=== PATIENT | female | born 1975 | race Caucasian/White ===

== ENCOUNTER 2016-12-06 15:40 | Emergency (ER) | payer MEDICAID ==
[2016-12-06 16:30] LABS: ABSOLUTE NEUTROPHIL COUNT 7.8 K/mm3 (1.8-7.7); BASO # 0.1 K/mm3 (0.0-0.2); BASO % 0.7 % (0.2-1.0); EOS # 0.6 (0.0-0.5); EOS % 4.9 % (0.9-2.9); HEMATOCRIT 42.6 % (37.0-47.0); HEMOGLOBIN 14.1 gm/l (12.0-16.0); IMM NEUT # 0.1 K/mm3 (0-0.2); IMM NEUT% 0.7 % (0-1); LYMPH # 2.7 (1.0-4.8); LYMPH % 21.8 % (15-45); MEAN CELL VOLUME 91.6 fl (81.0-99.0); MEAN CORPUSCULAR HEMOGLOBIN 30.3 pg (27.0-31.0); MEAN CORPUSCULAR HGB CONC 33.1 g/dl (33.0-37.0); MEAN PLATELET VOLUME 9.9 fl (7.4-10.4); MONO # 0.9 (0.0-0.8); MONO % 7.7 % (4-12); NEUT % 64.2 % (43-75); PLATELET COUNT 302 K/mm3 (130-400); RED CELL DISTRIBUTION WIDTH 12.4 % (11.5-14.5)
[2016-12-06 16:48] LABS: SPECIFIC GRAVITY 1.025 (1.001-1.030); URINE BILIRUBIN NEGATIVE (NEGATIVE); URINE BLOOD NEGATIVE (NEGATIVE); URINE GLUCOSE (UA) NEGATIVE (NEGATIVE); URINE LEUKOCYTE ESTERASE NEGATIVE (NEGATIVE); URINE NITRITE NEGATIVE (NEGATIVE); URINE PROTEIN NEGATIVE (NEGATIVE); URINE UROBILINOGEN NORMAL (0-1 mg/dl)
[2016-12-06 16:51] LABS: URINE APPEARANCE CLEAR; URINE COLOR DARK YELLOW
--- NOTE | 2016-12-06 17:52 | US ---
OB ULTRASOUND LESS THAN 14 WEEKS HISTORY: Left lower quadrant pain x1 week. History of right-sided salpingectomy. 9 weeks 1 day. Transabdominal and transvaginal obstetric ultrasound was performed. FINDINGS: INTRAUTERINE GESTATION: Present. MEAN SAC DIAMETER: 3.3 cm, corresponding to an age of 8 weeks 3 days. Gestational sac volume and morphology unremarkable. CROWN-RUMP LENGTH: 1.4 cm, corresponding to an age of 7 weeks 5 days. CARDIAC ACTIVITY: Present, with a heart rate of 164 beats per minute. Somatic motion is present. SONOGRAPHIC MEAN GESTATIONAL AGE: 7 weeks 5 days. SONOGRAPHIC EDC: 07/20/2017. YOLK SAC: Present. KIM-GESTATIONAL HEMORRHAGE: Not identified. RIGHT OVARY: 3.3 x 2.8 x 1.1 cm. LEFT OVARY: 3.8 x 2.8 x 2.0 cm. FOCAL ADNEXAL LESIONS: Probable corpus luteum cyst on the left, 2.8 x 2.3 x 2.0 cm. OVARIAN BLOOD FLOW: Documented bilaterally. FREE FLUID: None. IMPRESSION: Single live intrauterine gestation sonographically dating 7 weeks 5 days, EDC 07/20/2017. No perigestational hemorrhage. Probable corpus luteum cyst of the left. Results were electronically transmitted to the electronic medical record at 12/06/2016 at 1749 hours.
[2016-12-07 14:28] LABS: CHLAMYDIA BD Negative (Negative); N.GONORRHOEAE BD Negative (Negative); SOURCE Urine (())
== END 2016-12-06 18:28 | disposition home or self-care (01) ==
LOC: ED 15:40
DX: O20.0 Threatened abortion (principal)